=== PATIENT | female | born 1995 | race Caucasian/White ===

== ENCOUNTER 2017-02-24 21:44 | Emergency (ER) | payer SELFPAY ==
[~2017-02-24] VITALS: Ht 165.1 cm; Wt 70.2 kg
[2017-02-24 22:47] LABS: ADD MIUA? NO; BILIRUBIN NEGATIVE; BLOOD NEGATIVE; COLOR YELLOW ((YELLOW)); GLUCOSE (STRIP) 150; KETONES NEGATIVE; LEUKOCYTES NEGATIVE; NITRITE NEGATIVE; PROTEIN (STRIP) NEGATIVE; SPECIFIC GRAVITY 1.027 (1.000-1.030)
[2017-02-24 22:48] LABS: UCUL ADDED? NO
[2017-02-24 23:00] LABS: HEMATOCRIT 35.7 % (36.0-46.0); MCH 30.3 PG (29.0-34.0); MCHC 34.2 G/DL (30.0-36.0); MCV 88.6 FL (83-99); MEAN PLAT.VOLUME 10.1 uM^3 (9.5-12.4); PLATELET COUNT 354 K/uL (156-360); RBC DIS.WIDTH-CV 11.7 % (11.8-14.6); RBC DIS.WIDTH-SD 37.4 % (39-53); RED BLOOD COUNT 4.03 M/uL (3.80-5.20); WHITE BLOOD COUNT 11.5 K/uL (4.1-10.2)
[2017-02-24 23:12] LABS: CHLORIDE 106 mEq/L (99-109); POTASSIUM 3.5 mEq/L (3.7-5.4); SODIUM 139 mEq/L (136-147)
[2017-02-24 23:13] LABS: GLUCOSE 91 mg/dL (70-99)
[2017-02-24 23:16] LABS: ANION GAP 10 MEQ/L (2-14)
[2017-02-24 23:17] LABS: GFR ESTIMATE (CALCULATED) > 59 mL/min/
[2017-02-24 23:18] LABS: UREA NITROGEN (BUN) 13 mg/dL (9-23)
[2017-02-24 23:25] LABS: QUANTITATIVE HCG 5848.3 MIU/ML
[2017-02-25] MEDS ORDERED: PRENATAL ONE T1 EACH PO (01:00)
[2017-02-25 01:24] VITALS: BP 114/81
== END 2017-02-25 01:25 | disposition home or self-care (01) ==
LOC: EME 21:44
PROVIDERS: Physician Assistant
DX: O34.81 Maternal care for other abnormalities of pelvic organs, first trimester (principal); N83.201 Unspecified ovarian cyst, right side; Z3A.01 Less than 8 weeks gestation of pregnancy
CPT/HCPCS: 76801; 80048; 81003; 84702; 85027; 99281; 99283